=== PATIENT | male | born 1990 | race Caucasian/White ===

== ENCOUNTER 2023-05-07 14:21 | Emergency (ER) | payer OTHER ==
[~2023-05-07] VITALS: Ht 172.7 cm; Wt 83.9 kg
[2023-05-07] MEDS ORDERED: LIDOCAINE 0.5% HCL 50 ML VIAL ONE (15:26)
[2023-05-07] MEDS ORDERED: LIDOCAINE 1% INJ 50 ML MDV IJ ONE (15:28)
[2023-05-07] MEDS: TDAP [DIPH/PERTUSSIS/TET] 0.5 ML VIAL IM ONE (15:30)
[2023-05-07] MEDS: LIDOCAINE 1% INJ 50 ML MDV IJ ONE (15:31)
[2023-05-07] MEDS: BACI/NEOM/POLY B OINT PKT 1 UDPKT PACKET TP ONE (17:29)
[2023-05-07 17:31] VITALS: BP 135/78; TEMP 98.3; O2SAT 100
== END 2023-05-07 17:37 | disposition home or self-care (01) ==
LOC: ER 14:21
DX: S02.2XXA Fracture of nasal bones, initial encounter for closed fracture (principal); S01.81XA Laceration without foreign body of other part of head, initial encounter; S01.111A Laceration without foreign body of right eyelid and periocular area, initial encounter; S06.890A Other specified intracranial injury without loss of consciousness, initial encounter; W18.39XA Other fall on same level, initial encounter; Y93.89 Activity, other specified; Y92.89 Other specified places as the place of occurrence of the external cause; Y99.8 Other external cause status
CPT/HCPCS: 12014; 70450; 70486; 72131; 99284; A6403; J3490